=== PATIENT | male | born 1940 | race Caucasian/White ===

== ENCOUNTER 2021-05-21 09:45 | Outpatient (RCR) | payer MEDICARE, SELFPAY ==
--- NOTE | 2021-05-21 10:49 | PTOPEVAL ---
Thank you for referring Juan A Layton to [facility].? The patient is scheduled to be seen for therapy? ____x/week for ___ weeks. Please review, sign, date and return this plan of care JESSICA. I agree with and certify that the following plan of care is medically necessary. Referring Physician Date Admitting Provider: Attending Provider: Seth Meek M.D. Referring Provider: *PT Outpatient Evaluation Start: 05/21/21 10:05 Freq: Status: Active Protocol: Document 05/21/21 10:05 [facility] (Rec: 05/21/21 10:47 [facility] [id number]) Therapy Assessment Status Assessment Status Assessment Status Evaluation Evaluation Information Problem Diagnosis closed fracture of superior ramus of R pubis, unsteady gait Onset 04/29/21 Additional Evaluation Detail LEFS = 48% functionally declined Subjective Information patient reports he fell and Query Text:As Reported By Patient/ fractured his R pelvis aout 3 Family weeks ago. 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 he reports he feels pretty good now. he reports he was not using any AD prior to his fall . he reports he is using a walker for safety per MD reccomendations. he reports he was on the fence whether he needed therapy or not. he reports he did fall about a week prior to this injury. he reports in a years time he falls 2-3 times. he reports he has next to no pain. he reports difficulty with going up and down steps, picking up his feet to walk. he reports unable to go up steps without a railing. Prior Level of Function Comments Additional Prior Level of Function patient reports he has a few Comments falls a year. he reports prior to this most recent fall and fracture, patient was using no AD. he ambulated with normal speed and no pain. 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 Pain Assessment Timing of Pain Assessment Timing of Pain Assessment Assessment Pain Scale Pain Scale Used Numeric (1 - 10) Self Report Pain Assessment Pelvis
--- NOTE | 2021-05-31 11:03 | PTOPEVAL ---
Thank you for referring Juan A Layton to [facility].? The patient is scheduled to be seen for therapy? ____x/week for ___ weeks. Please review, sign, date and return this plan of care JESSICA. I agree with and certify that the following plan of care is medically necessary. Referring Physician Date Admitting Provider: Attending Provider: Seth Meek M.D. Referring Provider: *PT Outpatient Evaluation Start: 05/21/21 10:05 Freq: Status: Active Protocol: Document 05/31/21 10:00 [facility] (Rec: 05/31/21 11:01 [facility] [id number]) Therapy Assessment Status Assessment Status Assessment Status Progress Evaluation Information Problem Diagnosis closed fracture of superior ramus of R pubis, unsteady gait Onset 04/29/21 Subjective Information patient reports he feels good Query Text:As Reported By Patient/ this date. he reports he has Family no pain in the pelvis this date, but reports he was sore yesterday. he reports he took a painpill at noon yesterday that did not help with pain relief. he reports he woke up without pain this morning. Pain Assessment Timing of Pain Assessment Timing of Pain Assessment Assessment Pain Scale Pain Scale Used Numeric (1 - 10) Self Report Pain Assessment Pelvis Reported Pain Level 0 Pain Score Pain Score 0: Self Report Interventions Used Interventions Used By Clinicians Activity or ADL's,Education, Exercise Lower Extremity Muscle Strength Testing Hip Strength Right Hip Flexion Strength 4 Good Hip Abduction Strength 4- Good - Left Hip Flexion Strength 4+ Good + Hip Abduction Strength 4 Good Knee Strength Bilateral Knee Flexion Strength 5 Normal Knee Extension Strength 5 Normal Muscle Length Testing Muscle Length Testing Left Hamstring Length 35 Query Text:(90 - 90 Position) Right Hamstring Length 35 Query Text:(90 - 90 Position) Gait Assessment 6 Minute Walk Total Distance (feet) 1,000 6 Minute Walk Gait Speed Score (feet/ 2.77 second) Number of Breaks During Test 0 6 Minute Gait Comments no AD - patient displays fatigue in the R hip as ambulation time increases noted by increased R trunk lean/[place] lean during R stance time.
--- NOTE | 2021-06-06 15:08 | PTOPEVAL ---
Thank you for referring Juan A Layton to [facility].? The patient is scheduled to be seen for therapy? ____x/week for ___ weeks. Please review, sign, date and return this plan of care JESSICA. I agree with and certify that the following plan of care is medically necessary. Referring Physician Date Admitting Provider: Attending Provider: Seth Meek M.D. Referring Provider: *PT Outpatient Evaluation Start: 05/21/21 10:05 Freq: Status: Active Protocol: Document 06/06/21 14:00 [facility] (Rec: 06/06/21 15:07 [facility] [id number]) Therapy Assessment Status Assessment Status Assessment Status Discharge Evaluation Information Problem Diagnosis closed fracture of superior ramus of R pubis, unsteady gait Onset 04/29/21 Additional Evaluation Detail LEFS = 38% functionally declined Subjective Information patient reports he feels good Query Text:As Reported By Patient/ as far as the R hip/pelvis Family goes, but reports he is having increased bilateral knee pain lately. he reports injections to the knees did not work. he reports he is trying to hold off august to have knee replacement surgery. Pain Assessment Timing of Pain Assessment Timing of Pain Assessment Assessment Pain Scale Pain Scale Used Numeric (1 - 10) Self Report Pain Assessment Bilateral Knee(s) Reported Pain Level 6 Pelvis Reported Pain Level 1 Greatest Pain Intensity 3 Pain Score Pain Score 1,6: Self Report Interventions Used Interventions Used By Clinicians Activity or ADL's,Education, Exercise Lower Extremity Muscle Strength Testing Hip Strength Right Hip Flexion Strength 4 Good Hip Abduction Strength 4 Good Left Hip Flexion Strength 4+ Good + Hip Abduction Strength 4 Good Knee Strength Bilateral Knee Flexion Strength 5 Normal Knee Extension Strength 5 Normal Ankle Strength Bilateral Ankle Dorsiflexion Strength 5 Normal Ankle Plantarflexion Strength 5 Normal Muscle Length Testing Muscle Length Testing Left Hamstring Length 40 Query Text:(90 - 90 Position) Right Hamstring Length 40 Query Text:(90 - 90 Position) Balance Assessment Tinetti Balance Assessment Sitting Balance Steady, safe Ability to Arise Able, uses arms to help Attempts to Arise Arises on 1st attempt Immediate Standing [place]
== END 2021-06-06 15:22 | disposition home or self-care (01) ==
LOC: CHSPT 09:45
PROVIDERS: PCP Family Medicine; Visit Provider Family Medicine
DX: S32.511D Fracture of superior rim of right pubis, subsequent encounter for fracture with routine healing (principal)
CPT/HCPCS: 97110; 97161; 97530

== ENCOUNTER 2021-10-10 09:47 | Outpatient (RCR) | payer MEDICARE, SELFPAY ==
--- NOTE | 2021-10-10 10:32 | PTOPEVAL ---
Thank you for referring Juan A Layton to [facility].? The patient is scheduled to be seen for therapy? __3__x/week for 12 visits. Please review, sign, date and return this plan of care JESSICA. I agree with and certify that the following plan of care is medically necessary. Referring Physician Date Admitting Provider: Attending Provider: KELSI GOINS Referring Provider: *PT Outpatient Evaluation Start: 10/10/21 09:46 Freq: Status: Active Protocol: Document 10/10/21 09:46 [facility] (Rec: 10/10/21 10:25 [email or web address]) Therapy Assessment Status Assessment Status Assessment Status Evaluation Evaluation Information Problem Diagnosis s/p left TKA Onset 10/08/21 Subjective Information Pt. reports that he underwent Query Text:As Reported By Patient/ left TKA on 10/08/21. He Family reports that he returned home the same day. He states that pain has been mild. He is currently using a walker and is not driving. Pt. reports that prior to surgery he had no complication with IADL's and ADL's. He reports that his goal for therapy is to return to walking normal. Pain Assessment Timing of Pain Assessment Timing of Pain Assessment Pre-Treatment Pain Scale Pain Scale Used Numeric (1 - 10) Self Report Pain Assessment Left Knee(s) Reported Pain Level 2 Pain Frequency Continuous Lowest Pain Intensity 2 Greatest Pain Intensity 8 Pain Score Pain Score 2: Self Report Interventions Used Interventions Used By Clinicians Compression Pump,Exercise,Ice Lower Extremity Range of Motion General Lower Extremity Range of Motion Gross Lower Extremity Range of Motion -left knee AROM 2-88 degrees Comments -right knee AROM 0-130 degrees Lower Extremity Muscle Strength Testing General Lower Extremity Strength Gross Lower Extremity Strength -right hip flexion 5/5 -left hip flexion 4/5 -right knee flexion 5/5 -left knee flexion 3/5 -right knee extension 5/5 -left knee extension 3/5 -bilateral ankle dorsiflexion 5/5 Extremity Circumference Assessment Circumference Assessment Location Left Body Part Knee Site Descriptor ([place]) joint line Circumference (cm) 45 Noninvolved Side Circumference (cm) 43 Ga
--- NOTE | 2021-10-21 15:23 | PCPTNOTE ---
Mr. Layton has been seen for a total of 5 outpatient treatments with 100% compliancy. Patient's range of motion is 2-117 degrees of left knee. Patien's treatment has consisted of: -AAROM knee flexion x 10 minutes -heel prop promoting knee extension x 10 minutes -SAQ x 20 reps -SLR x 20 reps -patellar mobilization in all planes x 3 minutes -heel slides x 3 min with belt with 10 second holds at end range of motion -heel/toe raises x 25 benji each -hip abd x 25 benji -hip ext x 25 benji -squats x 20 -amb with straight cane x 200 feet cga x 1 step ups 6 x 15 left lateral step ups 6 x 15 left tandem stance on foam x 2 min Patient's treatment ending with vasopneumatic compression with ice to decrease pain and swelling post exercise Thanks for the referral of this patient. Any questions or concerns please contact our office. Wendy Berger REVENUE SPECIALIST
--- NOTE | 2021-11-12 09:54 | PTOPEVAL ---
Thank you for referring Juan A Layton to [facility].? The patient is scheduled to be seen for therapy? ____x/week for ___ weeks. Please review, sign, date and return this plan of care JESSICA. I agree with and certify that the following plan of care is medically necessary. Referring Physician Date Admitting Provider: Attending Provider: KELSI GOINS Referring Provider: *PT Outpatient Evaluation Start: 10/10/21 09:46 Freq: Status: Active Protocol: Document 11/12/21 09:16 [facility] (Rec: 11/12/21 09:53 [facility] [email or web address]) Therapy Assessment Status Assessment Status Assessment Status Discharge Evaluation Information Problem Diagnosis s/p left TKA Onset 10/08/21 Pain Assessment Timing of Pain Assessment Timing of Pain Assessment Assessment Self Report Self Report Pain Level 0 Pain Score Pain Score 0: Self Report Lower Extremity Range of Motion General Lower Extremity Range of Motion Gross Lower Extremity Range of Motion 0-125 degrees arom L knee Comments mobility Lower Extremity Muscle Strength Testing General Lower Extremity Strength Gross Lower Extremity Strength 4+/5 L hip flex 5/5 L knee strength Gait Assessment Gait Assessment Additional Ambulation Comments patient ambulates without any AD. patient ambulates with heel to toe progression bilaterally. patient continues to be complicated by a R knee that needs replaced and is bowed in genu varus. 1200ft ambulation. Stair Climbing Assessment Stair Climbing Assessment Stair Climbing Comments up and down 1 flight of step reciprocally with 1 hand rail hold. General Exercise General Exercises Exercise Description Ther ex Query Text:Record Sets, Reps, -heel prop 10 minutes Resistance, and Position -heel slides 5 minutes -heel/toe raises x 30 -hip abd x30 bilat -hip ext x30 bilat -squats x 30 -re-evaluation 5 minutes Ther act -ambulation 1200ft -stair ambulation up and down 1 flight focusing on reciprocal mechanics PT Clinical Summary Clinical Summary Protocol: PTEVCODE PT Clinical Summary mr. layton presents to skilled PT services for his
== END 2021-11-12 10:39 | disposition home or self-care (01) ==
LOC: CHSPT 09:47
PROVIDERS: PCP Family Medicine
DX: M25.562 Pain in left knee (principal); Z47.1 Aftercare following joint replacement surgery; Z96.652 Presence of left artificial knee joint
CPT/HCPCS: 97016; 97110; 97112; 97161; 97530

== ENCOUNTER 2022-08-27 09:07 | Outpatient (RCR) | payer MEDICARE, SELFPAY ==
--- NOTE | 2022-08-27 16:16 | PTOPEVAL1 ---
Assessment and note entered by [facility] Evaluation Information Assessment Status Evaluation Diagnosis pre-op R TKA Onset 08/22/22 Subjective Information Pt. reports that he has been exercise already. he underwent left TKA almost 1 year ago. He states that he will have the R TKA on 09/02/22. He states that he has a walker at home and will have assist from family following surgery. His goal is to be indepnedent with exercise. Reported Pain Level Pain Score 4: Self Report Assessment PT Clinical Summary Pt. has been instructed in proper AD use. He demonstrates independence with his HEP and is told to initiate exercise at home. He will be discharged from our care at this time. Plan of Care Treatment Frequency and D/C from PT to an independent HEP. Duration These treatments will address the objective and functional deficits as defined above. The patient will be advanced safely and appropriately in order for the patient to progress towards his/her prior level of function. Additional exercises will be introduced and as well as a comprehensive home exercise program upon discharge, if needed, ?to ensure carryover of functional gains achieved in the clinic. This treatment plan has been reviewed and agreement upon by the patient.
== END 2022-08-27 16:48 | disposition home or self-care (01) ==
LOC: CHSPT 09:07
PROVIDERS: PCP Family Medicine
DX: M17.11 Unilateral primary osteoarthritis, right knee (principal); M25.561 Pain in right knee
CPT/HCPCS: 97161

== ENCOUNTER 2022-09-04 09:50 | Outpatient (RCR) | payer MEDICARE, SELFPAY ==
--- NOTE | 2022-09-08 07:16 | BUPTOPEVAL1 ---
Assessment and note entered by Alexis Rene Evaluation Information Assessment Status Evaluation Diagnosis s/p right TKA Onset 09/02/22 Subjective Information Pt. reports that he underwent TKA 2 days ago. He states that he initiated exercise at home 2 days ago. He reports that his right knee pain is moderate. He is having some trouble sleeping at night due to pain. He reports that he is not driving and using his walker at home. He reports that he was independent with all IADL's prior to surgery and [place] 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 His goal for PT is to be able to walk without complication. Assessment PT Clinical Summary Pt. enters the clinic 2 days post right TKA. He presents with impaired gait, impaired strength, impaired ROM, pain and edema on this date. Continued skilled PT is indicated in order to improve these areas to allow the pt. to be able to complete all IADL's without limitation. Plan of Care Interventions Gait Training,Hot Pack/Cold Pack,Intermittent Compression,Manual Therapy,Neuro Re-education, Therapeutic Activities,Therapeutic Exercise,Self- Care/Home Management PT Services Indicated Yes Treatment Frequency and 3x/week x 4 weeks Duration These treatments will address the objective and functional deficits as defined above. The patient will be advanced safely and appropriately in order for the patient to progress towards his/her prior level of function. Additional exercises will be introduced and as well as a comprehensive home exercise program upon discharge, if needed, ?to ensure carryover of functional gains achieved in the clinic. This treatment plan has been reviewed and agreement upon by the patient.
--- NOTE | 2022-09-26 11:35 | PTOPPROG ---
Assessment and note entered by Cyndy Rawls DPT Evaluation Information Assessment Status Progress Diagnosis s/p right TKA Onset 09/02/22 Subjective Information see daily treatment note on 09/26/22 Assessment PT Clinical Summary Mr Layton is making good progress towards all goals at this time. Today he demonstrates improved R knee ROM and strength as well as no reports of pain. He is ambulating with no AD. He continues to have strength deficts in the R LE as well as decreased activity tolerance and would benefit from continued skilled PT to address remaining impairments and return to PLOF. Plan of Care Interventions Gait Training,Hot Pack/Cold Pack,Intermittent Compression,Manual Therapy,Neuro Re-education, Therapeutic Activities,Therapeutic Exercise,Self- Care/Home Management PT Services Indicated Yes PT Services Indicated Yes Treatment Frequency and continue with current POC Duration These treatments will address the objective and functional deficits as defined above. The patient will be advanced safely and appropriately in order for the patient to progress towards his/her prior level of function. Additional exercises will be introduced and as well as a comprehensive home exercise program upon discharge, if needed, ?to ensure carryover of functional gains achieved in the clinic. This treatment plan has been reviewed and agreement upon by the patient.
== END 2022-10-01 23:59 | disposition home or self-care (01) ==
LOC: CHSPT 09:50
PROVIDERS: PCP Family Medicine
DX: Z47.1 Aftercare following joint replacement surgery (principal); Z96.651 Presence of right artificial knee joint
CPT/HCPCS: 97016; 97110; 97161; 97530